=== PATIENT | male | born 1965 | race Caucasian/White ===

== ENCOUNTER 2023-06-30 12:39 | Emergency (ER) | payer MEDICAID, OTHER ==
[~2023-06-30] VITALS: Ht 188 cm; Wt 82.6 kg
[~2023-06-30 12:39] MED LIST: NORPTMEDS CO
[2023-06-30 14:01] VITALS: BP 128/73; PULSE 66; RESP 14; TEMP 97.9; O2SAT 96
[2023-06-30] MEDS ORDERED: CEPH500C PO (14:17)
== END 2023-06-30 14:34 | disposition home or self-care (01) ==
LOC: ER 12:39
DX: R23.8 Other skin changes (principal); E78.5 Hyperlipidemia, unspecified; Z79.899 Other long term (current) drug therapy